=== PATIENT | male | born 1970 | race Caucasian/White ===

== ENCOUNTER 2020-09-14 18:05 | Emergency (ER) | payer BC ==
[~2020-09-14] VITALS: Ht 175.3 cm; Wt 86.2 kg
[~2020-09-14 18:05] MED LIST: OMEPRAZOLE 20 M20 M1 PO; PAXIL10 MG PO; PROAIR HFA8.5 GM INH; SINGULAIR 10 MG10 M1 PO; TOPROL XL25 MG PO; VENTOLIN HFA 1818 GM INH
[2020-09-14 20:39] VITALS: BP 141/84
== END 2020-09-14 20:41 | disposition home or self-care (01) ==
LOC: ER 18:05
DX: S52.591A Other fractures of lower end of right radius, initial encounter for closed fracture (principal); S01.81XA Laceration without foreign body of other part of head, initial encounter; Z79.899 Other long term (current) drug therapy; W01.0XXA Fall on same level from slipping, tripping and stumbling without subsequent striking against object, initial encounter; Y93.89 Activity, other specified; Y92.89 Other specified places as the place of occurrence of the external cause; Y99.9 Unspecified external cause status